=== PATIENT | female | born 1990 | race African-American/Black ===

== ENCOUNTER 2016-09-11 22:58 | Emergency (ER) | payer OTHER ==
[2016-09-11 23:04] VITALS: BP 141/92; PULSE 103; TEMP 97.7; BMI 17.6
[2016-09-12] MEDS ORDERED: SULFAMETHOXAZOLE/TRIMETHOPRIM 800MG/160MG D.S. TABLET PO ONE (00:12)
[2016-09-12] MEDS ORDERED: IBUPROFEN 600 MG TABLET (FP) PO STA (00:12)
--- NOTE | 2016-09-12 00:16 | PDOC ---
History of Present Illness - General History Source: Patient Exam Limitations: No Limitations - History of Present Illness Initial Comments: 09/12/16 00:26 The patient is a 26 year old female, with no significant past medical history, who presents to the emergency department complaining of a cyst to the left breast for approximately 3 days. The patient reports associated painful throbbing at the site of the cyst. She reports that she has had a similar cyst in the past, but it burst on its own. The patient denies any fever, chills, cough, headache, or dizziness. The patient denies any chest pain, shortness of breath, diaphoresis, or palpitations. The patient denies any recent travel or sick contacts. Allergies: None reported. Past Surgical History: None reported. Social History: Current everyday smoker(5 cigarettes per day). Denies alcohol or drug use. <Carli Baltazar - Last Filed: 09/12/16 00:26> - General History Source: Patient <Heath Rangel - Last Filed: 09/12/16 00:35> - General Chief Complaint: Pain Stated Complaint: PAIN Time Seen by Provider: 09/12/16 00:11 Past History <Carli Baltazar - Last Filed: 09/12/16 00:26> - Psycho/Social/Smoking Cessation Hx Anxiety: No Suicidal Ideation: No Smoking Status: No Smoking History: Current every day smoker Number of Cigarettes Smoked Daily: 5 Information on smoking cessation initiated: No Hx Alcohol Use: No Drug/Substance Use Hx: No <Heath Rangel - Last Filed: 09/12/16 00:35> - Past Medical History Allergies/Adverse Reactions: Allergies Allergy/AdvReac Type Severity Reaction Status Date / Time No Known Allergies Allergy Verified 09/11/16 23:01 Home Medications: Ambulatory Orders Ibuprofen [Motrin] 600 mg PO TID #30 tablet 09/12/16 Oxycodone HCl/Acetaminophen [Percocet 5-325 mg Tablet] 1 - 2 tab PO Q6H #20 tablet MDD 4 09/12/16 Sulfamethoxazole/Trimethoprim [Bactrim Ds Tablet] 1 each PO BID #20 tablet 09/12 Review of Systems - Review of Systems Able to Perform ROS?: Yes Comments:: 09/12/16 00:26 CONSTITUTIONAL: Absent: fever, no chills, no fatigue EYES: Absent: visual changes ENT: Absent: ear pain, no sore throat CARDIOVASCULAR: Absent: chest pain, no palpitations RESPIRATORY: Absent: cough, no SOB GI: Absent: abdominal pain, no nausea, no vomiting, no constipation, no diarrhea GENITOURINARY: Absent: dysuria, no frequency, no hematuria MUSCULOSKELETAL: Present: +left breast cyst, +left breast pain Absent: back pain, no arthralgia, no myalgia SKIN: Absent: rash NEURO: Absent: headache <Carli Baltazar - Last Filed: 09/12/16 00:26> *Physical Exam - Vital Signs Last Vital Signs Temp Pulse Resp BP Pulse Ox 97.7 F 103 H 14 141/92 100 09/11/16 23:01 09/11/16 23:01 09/11/16 23:01 09/11/16 23:01 09/11/16 23:01 - Physical Exam Comments: 09/12/16 00:27 GENERAL: Well-appearing, well-nourished. No apparent distress. HEENT: Normocephalic, atraumatic. PERRL, EOM intact. CARDIOVASCULAR: Normal S1, S2. Regular rate and rhythm. PULMONARY: Clear to auscultation bilaterally. BREAST: Erythematous cyst/abscess around 11 oclock to the left areolar breast region. ABDOMEN: Soft, non-distended, non-tender. EXTREMITIES: Normal ROM in all four extremities. No gross deformities. SKIN: Warm, dry. No rash NEUROLOGICAL: No focal neurological deficits. <Carli Baltazar - Last Filed: 09/12/16 00:26> - Vital Signs Last Vital Signs Temp Pulse Resp BP Pulse Ox 97.7 F 103 H 14 141/92 100 09/11/16 23:01 09/11/16 23:01 09/11/16 23:01 09/11/16 23:01 09/11/16 23:01 <Heath Rangel - Last Filed: 09/12/16 00:35> ED Treatment Course - Medications Given in the ED: ED Medications Discontinued Medications Generic Name Dose Route Start Last Admin Trade Name Freq PRN Reason Stop Dose Admin Ibuprofen 600 mg 09/12/16 00:12 09/12/16 00:22 Motrin - PO 09/12/16 00:13 600 mg ONCE STA Administration Trimethoprim/Sulfamethoxazole 1 each 09/12/16 00:12 09/12/16 00:21 Bactrim Ds - PO 09/12/16 00:13 1 each ONCE ONE Administration <Carli Baltazar - Last Filed: 09/12/16 00:26> Medical Decision Making - Medical Decision Making 09/12/16 00:23 Dr. Rangel: The scribe's documentation has been prepared under my direction and personally reviewed by me in its entirery. I confirm that the note above accurately reflects all work, treatment, procedures, and medical decision making performed by me. Patient with lesion to 11 o'clock position of left breast areolar region. Pt given ABx Bactrim DS. Rx Motrin or Percocet. Pt advised to use warm compresses and follow up with surgery. <Heath Rangel - Last Filed: 09/12/16 00:35> *DC/Admit/Observation/Transfer - Attestations Scribe Attestion: 09/12/16 00:28 Documentation prepared by Carli Baltazar, acting as medical officer psychiatry for Heath Rangel DO. <Carli Baltazar - Last Filed: 09/12/16 00:26> - Discharge Dispostion Admit: No <Heath Rangel - Last Filed: 09/12/16 00:35> Diagnosis at time of Disposition: Breast abscess - Prescriptions Prescriptions: Sulfamethoxazole/Trimethoprim [Bactrim Ds Tablet] 1 each PO BID #20 tablet Ibuprofen [Motrin] 600 mg PO TID #30 tablet Oxycodone HCl/Acetaminophen [Percocet 5-325 mg Tablet] 1 - 2 tab PO Q6H #20 tablet MDD 4 - Referrals Referrals: Zeyad Mera MD [Staff Physician] - Francia Sorto MD [Staff Physician] - Mahad Garcia MD [Staff Physician] - - Patient Instructions Printed Discharge Instructions: DI for Skin Abscess, DI for Breast Pain ( Mastalgia) Additional Instructions: Take medication as directed. Please follow up with the doctor that you were referred to for eventual treatment. Apply warm compresses at least three times daily to see if lesion with burst on it's own.
[2016-09-12] MEDS ORDERED: SULFAMETHOXAZOLE/TRIMETHOPRIM 800MG/160MG D.S. TABLET ONE (00:19)
[2016-09-12] MEDS ORDERED: IBUPROFEN 600 MG TABLET (FP) PO ONE (00:20)
== END 2016-09-12 01:01 | disposition home or self-care (01) ==
LOC: JER 22:58
DX: N61.1 Abscess of the breast and nipple (principal); F17.210 Nicotine dependence, cigarettes, uncomplicated
CPT/HCPCS: 99281-25